=== PATIENT | female | born 1980 | race Caucasian/White ===

== ENCOUNTER 2019-10-20 09:06 | Outpatient (CLI) | payer OTHER, SELFPAY ==
--- NOTE | ~2019-10-20 | XR_ITS ---
XR lumbar spine 2-3V 10/20/2019 09:50 Indication: Low back pain for 3 weeks Procedure: 3 views lumbar spine Comparison: No prior studies for comparison. Findings: Vertebral body heights are maintained. No significant disc narrowing. No fracture, subluxat ion or spondylolisthesis. Normal alignment. Pedicles intact. Sacral foramen are symmetric. There are cholecystectomy clips. Impression: 1: No significant abnormality of the lumbar spine. Reviewed, dictated and finalized at location A. Impression: 1: No significant abnormality of the lumbar spine.
== END 2019-10-20 09:07 | disposition home or self-care (01) ==
LOC: ANHIMG 09:10
PROVIDERS: PCP Family Medicine; Visit Provider Nurse Practitioner Family
DX: M54.5 Low back pain (principal)
CPT/HCPCS: 72100

== ENCOUNTER 2019-10-26 01:12 | Day surgery (SDC) | payer OTHER, SELFPAY ==
[2019-10-21 14:38] VITALS: BMI 36.8
[2019-10-26 11:50] VITALS: BP 110/72; PULSE 88; RESP 18; TEMP 36.4; O2SAT 99
[2019-10-26] MEDS: LACTATED RINGERS 1,000 ML 150 ML IV CONT (11:58)
--- NOTE | 2019-10-26 12:06 | WPDANESEPPF ---
Anes - Initial Pre Proc Eval Procedure: Operation Date: 10/26/19 13:00 Proposed Procedures p Esophagogastroduodenoscopy - Edgardo Cabral MD Date/Time: 10/26/19 12:06 Surgeon: Edgardo Cabral MD Pre Op Diagnosis: Reflux Patient Data Age: 39 Gender: F Height: 5 ft 8 in Weight: 111.9 kg Last Vital Signs Temp 36.4 C 10/26/19 11:50 Pulse 88 10/26/19 11:50 Resp 18 10/26/19 11:50 BP 110/72 10/26/19 11:50 Pulse Ox 99 10/26/19 11:50 Allergies Allergy/AdvReac Type Severity Reaction Status Date / Time latex Allergy Unknown RASH-GLOVES Verified 10/20/19 08:35 morphine AdvReac Unknown Nausea and Verified 10/20/19 08:35 Vomiting Home Medications Medication Instructions Recorded Confirmed Type alprazolam 0.5 mg tablet,extended 0.5 mg PO DAILY 07/13/19 10/26/19 History release 24 hr cetirizine 5 mg-pseudoephedrine ER 1 tablet PO Q12H #60 tablet 09/04/19 10/26/19 Rx 120 mg tablet,extended release,12hr cholecalciferol (vitamin D3) 1,250 50,000 unit PO WEEKLY #8 cap 10/02/19 10/26/19 Rx mcg (50,000 unit) capsule escitalopram oxalate 10 mg tablet 15 mg PO DAILY #45 tablet 10/02/19 10/26/19 Rx valacyclovir 500 mg PO DAILY 10/21/19 10/21/19 History nabumetone 750 mg PO BID 10/26/19 10/26/19 History tizanidine [Zanaflex] 4 mg PO TID PRN 10/26/19 10/26/19 History Patient hx anesthesia problems: none Family hx anesthesia problems: none PMFSH Past Medical History Medical History Anxiety Cough Hx of migraine headaches Social History Social History Smoking packs per day: 1 Smoking cigarettes per day: 20.0 Smoking status: Former smoker Tobacco type: cigarettes Smoking end date: 08/14/10 Alcohol intake: current Drinks per week: 2 Anes - Eval Final PreProcedure Day of Procedure 10/26/19 12:06 Patient weight: obese Heart: regular rate and rhythm Lungs: clear to auscultation Airway: Mallampati scale class II Neurological: alert and oriented Last oral intake: >/= 8 hours Emergent: no Anesthetic plan: proceed Anesthesia type and monitoring: general GIVS and standard monitoring Informed Consent: The patient's anesthetic plan and its attendant risks and benefits were discussed with the patient/family/POA. Questions were solicited and answers provided to the satisfaction of the patient/family/POA.
[2019-10-26] MEDS: BENZOCAINE (*SP) 60 ML SPRAY CAN (HURRICAINE) 1 SPRAY MUCOUS MEM (13:06)
--- NOTE | 2019-10-26 13:12 | WPDHPUPDATE1 ---
History and Physical Update Update Date/Time: 10/26/19 13:12 History and Physical has been reviewed, including an updated exam of the patient. There are NO changes in the patient's condition. Risks, benefits, and alternatives have been discussed and questions answered. Patient agrees to proceed with procedure.
[2019-10-26 13:16] VITALS: BP 92/60; PULSE 60; RESP 18; O2SAT 97
[2019-10-26 13:26] VITALS: BP 91/57; PULSE 61; RESP 20; O2SAT 98
[2019-10-26 13:34] VITALS: BP 91/57; PULSE 61; RESP 20; O2SAT 98
[2019-10-26 13:36] VITALS: BP 99/68; PULSE 76; RESP 22; O2SAT 100
== END 2019-10-26 14:10 | disposition home or self-care (01) ==
PROVIDERS: PCP Family Medicine; Visit Provider Internal Medicine Gastroenterology
PROC: 0DJ08ZZ Inspection of Upper Intestinal Tract, Via Natural or Artificial Opening Endoscopic (ICD-10-PCS; CPT 43235; principal; 2019-10-26 13:00)
DX: K21.0 Gastro-esophageal reflux disease with esophagitis (principal); K29.50 Unspecified chronic gastritis without bleeding; F41.9 Anxiety disorder, unspecified; Z87.891 Personal history of nicotine dependence; E66.9 Obesity, unspecified; Z68.37 Body mass index [BMI] 37.0-37.9, adult
CPT/HCPCS: 43239; 88305; J2704; J7120

== ENCOUNTER → 2021-10-10 02:12 | Outpatient (CLI) | payer OTHER, SELFPAY ==
[2021-10-10 14:30] LABS: SARS-CoV-2 RNA PCR Negative
== END ==
PROVIDERS: PCP Family Medicine; Visit Provider Obstetrics & Gynecology
DX: Z01.812 Encounter for preprocedural laboratory examination (principal); Z20.822 Contact with and (suspected) exposure to COVID-19
CPT/HCPCS: C9803; U0003; U0005

== ENCOUNTER 2021-10-10 08:10 | Outpatient (CLI) | payer OTHER, SELFPAY ==
[2021-10-10 08:58] LABS: Basophils Percent Auto 0.6 % (0.2-1.2); Eosinophils Absolute Auto 0.1 K/mm3 (0-0.3); Eosinophils Percent Auto 1.6 % (0-4.4); Hematocrit 39.7 % (37.0-47.0); Hemoglobin 13.3 g/dL (12.0-15.0); Immature Granulocyte Absolute 0.02 K/mm3 (0.00-0.031); Immature Granulocyte Percent A 0.3 % (0-0.5); Lymphocytes Absolute Auto 1.79 K/mm3 (0.9-3.2); Lymphocytes Percent Auto 28.7 % (18.3-44.2); Mean Corpuscular HGB Conc 33.5 g/dl (32-36); Mean Corpuscular Hemoglobin 30.8 pg (26-34); Mean Corpuscular Volume 91.9 fl (80-100); Mean Platelet Volume 9.6 fl (7.4-10.4); Monocytes Absolute Auto 0.4 K/mm3 (0.1-0.6); Monocytes Percent Auto 6.6 % (2.6-8.5); Neutrophils Absolute Auto 3.9 K/mm3 (1.3-6.7); Neutrophils Percent Auto 62.2 % (45.5-73.1); Platelet Count Result 391 k/mm3 (150-375); Red Blood Count 4.32 M/mm3 (4.2-5.4); Red Cell Distribution Width 12.9 % (11.5-14.5); White Blood Count 6.2 K/mm3 (4.5-10.0)
== END 2021-10-10 08:11 | disposition home or self-care (01) ==
PROVIDERS: PCP Family Medicine; Visit Provider Obstetrics & Gynecology
DX: Z01.812 Encounter for preprocedural laboratory examination (principal); N85.2 Hypertrophy of uterus
CPT/HCPCS: 36415; 85025; 86850; 86900; 86901

== ENCOUNTER 2021-10-13 01:47 | Day surgery (SDC) | payer OTHER, SELFPAY ==
[2021-10-06 12:12] VITALS: BMI 42.0
--- NOTE | 2021-10-06 12:28 | PC.NURSE ---
Report to the Outpatient Waiting Room, entrance under the green pavilion located off [facility], at time 6:00 on date 10/13/21. OR Time: 7:30. - You and your visitor will be asked a series of questions to screen for COVID 19 for your protection. - A mask is required within the hospital. One visitor will be allowed to accompany the patient into the hospital. Patients visitor will be instructed to remain with patient at all times or leave the building. We will allow the visitor to come back to the postoperative area when patient is ready. Preoperative COVID Testing Requirements: COVID TEST 10/10 AT 9:00 No COVID Test needed if: (proof is required; if not received patient will have Rapid Test prior to entry) - Patient has received COVID Vaccine at least 14 days prior to procedure date or - Patient has positive COVID test result within last 90 days of surgery date. COVID Test needed if above criteria is not met If not COVID vaccinated a COVID test must be conducted within 72 hours of surgery and patient is asked to isolate self from time of testing until procedure. You will go to the [facility] for your COVID testing. The [facility] site is located at the corner of [address] [facility]. You will only be called if COVID results are positive and your surgeon may reschedule your elective surgery date. Patients may have clear liquids (water, carbonated beverages, clear teas, apple juice) until 3 hours prior to surgery (4:30) with a maximum of 20 ounces. - No food from midnight until time of surgery Take the following medications with a SIP of water the morning of surgery: XANAX (IF NEEDED), LEXAPRO, VALACYCLOVIR Medications to discontinue per physician: N/A Date to take last dose: N/A Please no make-up, nail somali, hairspray, perfume, deodorant, or body powder the day of surgery. No jewelry (including any body piercings) or valuables the day of surgery, leave them at home. Please take a shower or bath the night before, or the morning of, surgery with an antibacterial soap. Wear comfortable, loose fitting clothing. - Jewelry must be removed prior to entering the operating room. Rings and piercings that are not removed may be cut off. - The hospital will not accept responsibility for valuables. - Please leave all valuables, including medications, at home the day of surgery. If you are going home after surgery, a licensed independent driver must drive you home. - NO public transportation without another adult. - We recommend that an adult stay with you for 24 hours following discharge. - We also recommend that you do not drive, make important decision, drink alcoholic beverages, or take any drugs that were not prescribed by your health care provider for at least 24 hours after your discharge time. Follow any additional instructions given to you from your surgeon. Telephone instructions given to SANDIE GRAY and asked if any additional questions and then verbalized understanding. Patient advised to call surgeon office or pre surgery nurse liaison [phone] if any additional questions.
--- NOTE | 2021-10-11 07:32 | PM.IMHP ---
H&P: HPI History of Present Illness Date/Time: 10/11/21 07:32 this is a 30 3 para 2 who is admitted for robotic total vaginal hysterectomy and bilateral salpingectomy secondary to uterine fibroids and uterine prolapse. She complains pain and discomfort dyspareunia and heavy periods. This has been ongoing problem and she desires permanent removal and repair. Risks and benefits reviewed including but not exclusive of , aspiration and a family bleeding, transfusion, perforation under bowel, bladder, ureters, or other internal organs with need for open laparotomy. She received the [employer] handout entitled hysterectomy as well as the [facility] handout. She had all questions answered and asked to proceed Chief Complaint: uterine fibroids and pelvic pain with prolapse Review of Systems Review of Systems: All systems reviewed & are unremarkable except as noted in HPI and below PMFSH Past Medical History Medical History Anxiety BMI 40.0-44.9, adult Cough Hx of migraine headaches Family History Family History Father Hypertension Family history of coronary artery disease Grandparent Cerebrovascular accident Social History Social History Smoking packs per day: 0.5 Smoking cigarettes per day: 10.0 Years smoked: 20 Smoking pack-years: 10.00 Smoking status: Former smoker Tobacco type: cigarettes Second hand tobacco smoke exposure: No Smoking end date: 08/12/11 Alcohol intake: current Drinks per week: 2 Alcohol use details: 3/MONTH Substance use: current Substance use type: marijuana Spiritual care concerns: No Meds Home Medications and Allergies Home Medications Medication Instructions Recorded Confirmed Type tizanidine 2 mg tablet 2 mg PO QHS PRN #20 tablet 11/28/20 10/06/21 Rx alprazolam 0.5 mg tablet 0.5 mg PO BID PRN 12/08/20 10/06/21 History valacyclovir 500 mg tablet 500 mg PO DAILY #30 tablet 04/03/21 10/06/21 Rx escitalopram oxalate 20 mg tablet 20 mg PO DAILY #30 tablet 05/23/21 10/06/21 Rx omeprazole 40 mg capsule,delayed 40 mg PO DAILY #30 cap 07/25/21 10/06/21 Rx release levocetirizine [Xyzal] 5 mg PO DAILY 10/06/21 10/06/21 History Allergies Allergy/AdvReac Type Severity Reaction Status Date / Time latex Allergy Unknown RASH-GLOVES Verified 10/06/21 12:09 morphine AdvReac Unknown Nausea and Verified 10/06/21 12:09 Vomiting Exam Const: General: no acute distress Eyes: General: appearance normal, both eyes and all related structures Neck: Neck: supple and no JVD Thyroid: thyroid normal Resp: Effort & Inspection: normal respiratory effort Auscultation: clear to auscultation bilaterally Cardio: Rate: regular rate Rhythm: regular rhythm GI: Inspection: non-distended GI Palp: Yes Soft to palpation, No Tenderness to palpation present (GI) and No Guarding due to palpation present (GI) Auscultation: normal bowel sounds : External Female Exam: normal external appearance Speculum Exam - Vagina: normal appearance of the vagina Speculum Exam - Cervix: normal appearance of the cervix and Cervical os closed ( second-degree prolapse is present) Bimanual exam- vagina & uterus: enlarged Bimanual Exam- Adnexa, other: No adnexal tenderness Skin: General skin exam: no rashes or lesions noted Extrem: General: normal to inspection and no edema Psych: Mental Status: mental status grossly normal Affect: normal affect Assessment and Plan Additional Plan impression: Fibroid uterus uterine prolapse pelvic pain Plan: Robotic total vaginal hysterectomy and bilateral salpingectomy
[2021-10-13] VITALS (13 sets, daily range): BP systolic 71–128; BP diastolic 44–73; PULSE 73–96; RESP 10–18; TEMP 35.9–36.7; O2SAT 93–99
--- NOTE | 2021-10-13 06:45 | P.PNAN_ITS ---
Anes - Initial Pre Proc Eval Procedure: Operation Date: 10/13/21 07:30 Proposed Procedures p Robotic Assisted Total Vaginal Hysterectomy with Bilateral Salpingectomy - Ernesto Rivera MD Date/Time: 10/13/21 06:45 Surgeon: Ernesto Rivera MD Pre Op Diagnosis: enlg uterus, pelvic pain, fibroids, uterine prolap Patient Data Age: 41 Gender: F Height: 1.75 m Weight: 129.27 kg Allergies Allergy/AdvReac Type Severity Reaction Status Date / Time latex Allergy Unknown RASH-GLOVES Verified 10/06/21 12:09 morphine AdvReac Unknown Nausea and Verified 10/06/21 12:09 Vomiting Home Medications Medication Instructions Recorded Confirmed Type tizanidine 2 mg tablet 2 mg PO QHS PRN #20 tablet 11/28/20 10/06/21 Rx alprazolam 0.5 mg tablet 0.5 mg PO BID PRN 12/08/20 10/06/21 History valacyclovir 500 mg tablet 500 mg PO DAILY #30 tablet 04/03/21 10/06/21 Rx escitalopram oxalate 20 mg tablet 20 mg PO DAILY #30 tablet 05/23/21 10/06/21 Rx omeprazole 40 mg capsule,delayed 40 mg PO DAILY #30 cap 07/25/21 10/06/21 Rx release levocetirizine [Xyzal] 5 mg PO DAILY 10/06/21 10/06/21 History hydrocodone-acetaminophen 1 tablet PO Q4H PRN #30 tablet 10/13/21 Rx Patient hx anesthesia problems: none Family hx anesthesia problems: none Results Review: All pre-operative results and documents have been reviewed as part of the pre-operative evaluation. [facility] Past Medical History Medical History Anxiety BMI 40.0-44.9, adult Cough GERD (gastroesophageal reflux disease) Hx of migraine headaches Family History Family History Father Hypertension Family history of coronary artery disease Grandparent Cerebrovascular accident Social History Social History Smoking packs per day: 0.5 Smoking cigarettes per day: 10.0 Years smoked: 20 Smoking pack-years: 10.00 Smoking status: Former smoker Tobacco type: cigarettes Second hand tobacco smoke exposure: No Smoking end date: 08/12/11 Alcohol intake: current Drinks per week: 2 Alcohol use details: 3/MONTH Substance use: current Substance use type: marijuana Living arrangements: with family Spiritual care concerns: No Anes - Eval Final PreProcedure Day of Procedure 10/13/21 06:45 Patient weight: morbidly obese Heart: regular rate and rhythm Lungs: clear to auscultation Airway: Mallampati scale class II Neurological: alert and oriented Last oral intake: >/= 8 hours ASA classification: III Emergent: no Anesthetic plan: proceed Anesthesia type and monitoring: general ETT and standard monitoring Results Review: All pre-operative results and documents have been reviewed as part of the pre-operative evaluation. Informed Consent: The patient's anesthetic plan and its attendant risks and benefits were discussed with the patient/family/POA. Questions were solicited and answers provided to the satisfaction of the patient/family/POA.
--- NOTE | 2021-10-13 06:45 | WPDHPUPDATE1 ---
History and Physical Update Update Date/Time: 10/13/21 06:45 History and Physical has been reviewed, including an updated exam of the patient. There are NO changes in the patient's condition. Risks, benefits, and alternatives have been discussed and questions answered. Patient agrees to proceed with procedure.
[2021-10-13] MEDS: ACETAMINOPHEN 500 MG TABLET 1000 MG PO (07:10)
[2021-10-13] MEDS: LACTATED RINGERS 1,000 ML 30 ML IV CONT ×2 (07:19→09:05)
[2021-10-13] MEDS: KETOROLAC 15 MG/ML VIAL (*BKC) IV PUSH (07:20)
[2021-10-13] MEDS: SCOPOLAMINE 1.5 MG PATCH TRANSDERM (07:20)
[2021-10-13] MEDS: ceFAZolin 3 GM/D5W 100 ML 100 ML IVPB (07:25)
--- NOTE | 2021-10-13 08:37 | P.OP_ITS ---
Procedure Note - Detailed Date of Procedure 10/13/21 Pre-op Diagnosis enlg uterus, pelvic pain, fibroids, uterine prolap Post-op Diagnosis Same Procedure Performed Robotic total vaginal hysterectomy and bilateral salpingectomy Surgeon Ernesto Rivera MD Anesthesia General Indications This is a 41-year-old female with symptomatic uterine fibroids and heavy bleeding and pain Findings Enlarged uterus. Normal-appearing ovaries and tubes Description of Procedure The patient was prepped draped in the normal sterile fashion placed in the dorsal lithotomy position. Under excellent general trach anesthesia weighted speculum placed in posterior fornix vagina. Anterior lip of the cervix grasped with a single-tooth tenaculum an the uterus sounded to 11cm. Serial dilatation with fragmented dilators performed followed passes the 10. BRIAN and the 3. Cold cup. Next the 16 Uzbek catheter was placed in bladder and drained clear urine. The weighted speculum was removed and the gloves were changed. A supraumbilical incision made in the Veress needle passed in the abdomen. Abdomen filled with CO2 gas [id number]. The 8mm trocar advanced in the abdomen downside visualized no injury seen. Patient placed in Trendelenburg and right left lateral quadrant incision made. The 8mm trocars advanced under direct visualization assuring no injury. Right upper quadrant incision made the 8mm trocar advanced in the abdomen under direct visualization. The robot was docked and no injury was seen. Attention was turned to the console. The left round ligament was grasped, burned, cut. Anteriorly a bladder flap was formed by sharply dissecting the bladder layer by layer and reached flexing it caudally to the opposite round ligament which was clamped, burned, cut. Next the left fallopian tube was skeletonized and sharply dissected away from the ovarian complex and this was repeated on the contralateral side with right fallopian tube. The left utero- ovarian ligament was skeletonized to conserve the left ovary clamped burned and cut and brought the level of previously cut round ligament. In like fashion the right ovary was conserved by clamping burning cutting the right utero-ovarian ligament until the round ligament was met. The cardinal broad ligaments on the left were serially skeletonized brought down the lateral edge hugging the cervix and uterus clamping burning cutting until the large tortuous blood vessels were seen. On the left was a fairly large sinus. These were clamped burned cut and the hemostasis noted. In like fashion the cardinal broad ligaments on the right were serially skeletonized clamping burning cutting hugging the uterus and cervix on the opposite side until the uterine vessels could be seen on the right these are were also large and tortuous. These were serially clamped, burned, cut. Blanching the uterus was seen it colpotomy incision was made uterus cervix and tubes removed through the vagina. The vagina was then closed with continuous running 0V lock from lateral edge to lateral edge back to the midline. Irrigation undertaken to clear and hemostasis was assured. Blood loss estimated 25cc. The robot was undocked. The gas removed from the abdomen. The incisions closed with 4 Monocryl and glue. The patient awakened went to recovery in satisfactory condition. All sponge, needle, instrument counts were correct. There were no immediate complications noted Estimated Blood Loss 25 Drains No Packing No Pathology Yes Complications No immediate complications Condition Stable Disposition PACU
[2021-10-13] MEDS: fentaNYL CITRATE INJ (*CRX) 100 MCG/2 ML VIAL 25 MCG IV PUSH ×6 (08:57→09:54)
[2021-10-13] MEDS: MEPERIDINE HCL INJ (*CRX) 50 MG/ML AMPUL 25 MG IV PUSH (09:25)
[2021-10-13] MEDS: KETOROLAC 30 MG/ML VIAL (*BKC) IV PUSH (10:40)
[2021-10-13] MEDS: ONDANSETRON INJ 4 MG/2 ML VIAL IV PUSH (10:40)
[2021-10-13] MEDS: HYDROcodone/acetaminophen (*CRX) 10-325 MG TABLET 1 TAB PO ×2 (16:11→20:59)
[2021-10-13] MEDS: DOCUSATE SODIUM 100 MG CAPSULE PO (16:11)
[2021-10-13] MEDS: IBUPROFEN 600 MG TABLET PO (20:59)
[2021-10-14] MEDS: HYDROcodone/acetaminophen (*CRX) 10-325 MG TABLET 1 TAB PO ×4 (00:41→12:21)
[2021-10-14] MEDS: IBUPROFEN 600 MG TABLET PO ×2 (04:07→12:21)
[2021-10-14 04:43] VITALS: BP 106/57; PULSE 63; RESP 18; TEMP 35.9; O2SAT 97
[2021-10-14 05:30] LABS: Basophils Absolute Auto 0.1 K/mm3 (0.0-0.1); Basophils Percent Auto 0.5 % (0.2-1.2); Eosinophils Percent Auto 0.3 % (0-4.4); Hematocrit 34.9 % (37.0-47.0); Hemoglobin 11.6 g/dL (12.0-15.0); Immature Granulocyte Absolute 0.03 K/mm3 (0.00-0.031); Immature Granulocyte Percent A 0.3 % (0-0.5); Lymphocytes Absolute Auto 1.75 K/mm3 (0.9-3.2); Lymphocytes Percent Auto 15.9 % (18.3-44.2); Mean Corpuscular HGB Conc 33.2 g/dl (32-36); Mean Corpuscular Hemoglobin 30.3 pg (26-34); Mean Corpuscular Volume 91.1 fl (80-100); Mean Platelet Volume 9.9 fl (7.4-10.4); Monocytes Absolute Auto 0.5 K/mm3 (0.1-0.6); Monocytes Percent Auto 4.3 % (2.6-8.5); Neutrophils Absolute Auto 8.7 K/mm3 (1.3-6.7); Neutrophils Percent Auto 78.7 % (45.5-73.1); Platelet Count Result 374 k/mm3 (150-375); Red Blood Count 3.83 M/mm3 (4.2-5.4); Red Cell Distribution Width 12.9 % (11.5-14.5)
[2021-10-14 07:40] VITALS: BP 93/51; PULSE 84; RESP 18; TEMP 36.8; O2SAT 95
[2021-10-14] MEDS: SIMETHICONE 80 MG TAB.CHEW PO (07:46)
[2021-10-14] MEDS: ENOXAPARIN 40 MG/0.4 ML SYRINGE SUB-Q (07:46)
[2021-10-14] MEDS: DOCUSATE SODIUM 100 MG CAPSULE PO (07:46)
--- NOTE | 2021-10-14 08:19 | WPDANESPN ---
Anes - Prog Note Post-Op Date/Time: 10/14/21 08:19 Cardiovascular status: normal Respiratory status: normal Airway patency: baseline Mental status: baseline Post-Op hydration status: normal Vital Signs: Last Vital Signs Temp 98.3 F 10/14/21 07:40 Pulse 84 10/14/21 07:40 Resp 18 10/14/21 07:40 BP 93/51 L 10/14/21 07:40 Pulse Ox 95 10/14/21 07:40 Pain Score (VAS): 3 I/O: Intake & Output 10/13/21 10/14/21 10/14/21 23:59 07:59 15:59 Intake Total 200 550 Output Total 1200 400 Balance -1000 150 Laboratory Tests 10/14/21 04:10 10/14/21 04:10 WBC 11.0 H RBC 3.83 L Hgb 11.6 L Hct 34.9 L MCV 91.1 MCH 30.3 MCHC 33.2 RDW 12.9 Plt Count 374 MPV 9.9 Immature Gran % (Auto) 0.3 Neut % (Auto) 78.7 H Lymph % (Auto) 15.9 L Mitchell % (Auto) 4.3 Eos % (Auto) 0.3 Baso % (Auto) 0.5 Lymph # (Auto) 1.75 Mitchell # (Auto) 0.5 Eos # (Auto) 0.0 Baso # (Auto) 0.1 Abs Immat Gran (auto) 0.03 Absolute Neuts (auto) 8.7 H Absolute Nucleated RBC 0.0 Nucleated RBC % 0.0 Post-procedural complaints: none Patient Feedback: Patient satisfied with anesthetic care.
--- NOTE | 2021-10-14 11:30 | PM.GYNPNOP ---
[place] - A/P Postoperative Procedures: Procedures Operation Date: 10/13/21 07:30 Actual Procedure Side Surgeon p Robotic Assisted Total Vaginal Hysterectomy with Bilateral Salpingectomy Bilateral Ernesto Rivera MD A: POD#1, doing well. P: Home to f/u 2 weeks. Time Spent With Patient Time with patient: less than 15 minutes [place]- PN:Subj Post-Op Subjective Date/time seen: 10/14/21 11:30 Interval history: Pain OK. Tolerating diet. Voiding. Would like to go home. Exam Narrative: AVSS I/O OK ABD soft, nontender. Incisions c/d/i. EXT nontender [place] - PN: Obj Data Vital Signs Vital Signs: Vital Signs - 24 hr 10/13/21 12:05 10/13/21 17:00 10/13/21 20:26 Temperature 36.6 C 36.3 C L 35.9 C L Pulse Rate 79 79 84 Respiratory Rate 16 16 18 Blood Pressure 102/58 L 106/62 121/65 Pulse Oximetry 96 96 98 10/13/21 23:30 10/14/21 04:43 10/14/21 07:40 Temperature 36.0 C L 35.9 C L 36.8 C Pulse Rate 80 63 84 Respiratory Rate 18 18 18 Blood Pressure 101/56 L 106/57 L 93/51 L Pulse Oximetry 98 97 95 Intake/Output Intake/Output: Intake & Output 10/11/21 10/12/21 10/13/21 10/14/21 23:59 23:59 23:59 23:59 Intake Total 1700 550 Output Total 1240 400 Balance 460 150 Meds/Results Medications: Active Medications Generic Name Dose Route Start Last Admin Trade Name Freq PRN Reason Stop Dose Admin Hydrocodone Bitart/Acetaminophen 1 tab 10/13/21 10:30 Hydrocodone/Acetaminophen (*Crx) 5-325 Mg Tablet PO Q3H PRN Pain Rated 5 or Less Hydrocodone Bitart/Acetaminophen 1 tab 10/13/21 10:30 10/14/21 07:46 Hydrocodone/Acetaminophen (*Crx) 10-325 Mg Tablet PO 1 tab Q3H PRN Administration Pain Rated 6 or Greater Docusate Sodium 100 mg 10/13/21 10:30 10/14/21 07:46 Docusate Sodium 100 Mg Capsule PO 100 mg BID PRIYA Administration Enoxaparin Sodium 40 mg 10/13/21 10:30 10/14/21 07:46 Enoxaparin 40 Mg/0.4 Ml Syringe SUB-Q 40 mg DAILY PRIYA Administration Ibuprofen 600 mg 10/13/21 10:30 10/14/21 04:07 Ibuprofen 600 Mg Tablet PO 600 mg Q6H PRN Administration Cramping Ketorolac Tromethamine 30 mg 10/13/21 10:30 10/13/21 10:40 Ketorolac 30 Mg/Ml Vial (*Bkc) IV PUSH 10/18/21 10:29 30 mg Q6H PRN Administration Pain Rated 4-6 Naloxone HCl 0.1 mg 10/13/21 10:30 Naloxone Hcl 0.4 Mg/Ml Vial IV PUSH Q2M PRN Respiratory rate less than 10 Ondansetron HCl 4 mg 10/13/21 10:30 10/13/21 10:40 Ondansetron Inj 4 Mg/2 Ml Vial IV PUSH 4 mg Q6H PRN Administration Nausea And Vomiting Simethicone 80 mg 10/13/21 10:30 10/14/21 07:46 Simethicone 80 Mg Tab.Chew PO 80 mg Q2H PRN Administration Gas Labs CBC & Chem 7: 10/14/21 04:10 Labs: Laboratory Results - last 24 hr 10/14/21 04:10 WBC 11.0 H RBC 3.83 L Hgb 11.6 L Hct 34.9 L MCV 91.1 MCH 30.3 MCHC 33.2 RDW 12.9 Plt Count 374 MPV 9.9 Immature Gran % (Auto) 0.3 Neut % (Auto) 78.7 H Lymph % (Auto) 15.9 L [place] % (Auto) 4.3 Eos % (Auto) 0.3 Baso % (Auto) 0.5 Lymph # (Auto) 1.75 [place] # (Auto) 0.5 Eos # (Auto) 0.0 Baso # (Auto) 0.1 Abs Immat Gran (auto) 0.03 Absolute Neuts (auto) 8.7 H Absolute Nucleated RBC 0.0 Nucleated RBC % 0.0
--- NOTE | 2021-10-16 07:08 | PM.DS ---
DS: Admitting Diagnosis Discharge Date 10/14/21 Admitting Diagnosis Pelvic pain/enlarged uterus/bleeding refractory to medical therapy DS: Summary Hospital Course Hospital Course: Patient was admitted for robotic total vaginal hysterectomy and bilateral salpingectomy hospital course was unremarkable. She remained afebrile. She was up, voiding without difficulty, ambulating generally without complaints. Time Spent with Patient Time attestation: Total time spent providing and/or coordinating discharge services: Exam Const: General: no acute distress Eyes: General: appearance normal, both eyes and all related structures Neck: Neck: supple and no JVD Thyroid: thyroid normal Resp: Effort & Inspection: normal respiratory effort Auscultation: clear to auscultation bilaterally Cardio: Rate: regular rate Rhythm: regular rhythm GI: Inspection: non-distended GI Palp: Yes Soft to palpation, No Tenderness to palpation present (GI) and No Guarding due to palpation present (GI) Auscultation: normal bowel sounds : General: Yes bladder normal to palpation External Female Exam: normal external appearance Speculum Exam - Vagina: normal vaginal discharge and No vaginal bleeding Speculum Exam - Cervix: nontender Bimanual exam- vagina & uterus: bladder normal to palpation and No Cervical tenderness present OB/external & speculum: No vaginal bleeding Skin: General skin exam: no rashes or lesions noted Extrem: General: normal to inspection and no edema Psych: Mental Status: mental status grossly normal Affect: normal affect DS: Data Data Completed and Pending Pending studies at discharge: Pending at discharge 10/13/21 07:59 Surgical [PTH] Routine Discharge Plan Discharge Patient Disposition: Home, Self-Care Discharge Instructions: Remove the Scopolamine patch that was placed behind your left ear in 72 hours or less. Wash your hands after touching. Patient Instructions: Laparoscopic Hysterectomy (DC) Stand Alone Forms: General Discharge Instructions Follow-up/Referrals: Ernesto Rivera MD [Physician] - Call for Appointment Discharge Medications: New hydrocodone-acetaminophen 5-325 mg tablet 1 tablet PO Q4H PRN (Reason: pain) Qty: 30 RF: 0 Continued alprazolam 0.5 mg tablet 0.5 mg PO BID PRN (Reason: Anxiety) RF: 0 tizanidine 2 mg tablet 2 mg PO QHS PRN (Reason: muscle spasticity) Qty: 20 RF: 0 levocetirizine [Xyzal] 5 mg Tablet 5 mg PO DAILY RF: 0 valacyclovir 500 mg tablet 500 mg PO DAILY Qty: 30 RF: 3 escitalopram oxalate [Lexapro] 20 mg tablet 20 mg PO DAILY Qty: 30 RF: 3 omeprazole 40 mg capsule,delayed release(DR/EC) 40 mg PO DAILY Qty: 30 RF: 0
== END 2021-10-14 12:45 | disposition home or self-care (01) ==
LOC: ANHSURGERY 06:46 → ANHOB2 10:33
PROVIDERS: PCP Family Medicine; Visit Provider Obstetrics & Gynecology
PROC: (CPT 58552; principal; 2021-10-13 07:30)
DX: N85.2 Hypertrophy of uterus (principal); R10.12 Left upper quadrant pain; N73.6 Female pelvic peritoneal adhesions (postinfective); F41.9 Anxiety disorder, unspecified; N94.10 Unspecified dyspareunia; N92.0 Excessive and frequent menstruation with regular cycle; Z87.891 Personal history of nicotine dependence; F12.90 Cannabis use, unspecified, uncomplicated
CPT/HCPCS: 58552; S2900; 36415; 85025; 86850; 86900; 86901; 88307; 99199; A9270; C9803; J0690; J1100; J1170; J1650; J1885; J2175; J2250; J2405; J2704; J2710; J3010; J7030; J7120; U0003; U0005

== ENCOUNTER 2021-10-19 08:02 | Outpatient (CLI) | payer OTHER, SELFPAY ==
--- NOTE | ~2021-10-19 | MM_ITS ---
EXAMINATION: MM screening ina BI w hal HISTORY: Screening TECHNIQUE: Craniocaudal and mediolateral oblique 3-D tomosynthesis images were obtained and synthetic 2-D images were generated. CAD analysis was submitted and interpreted. COMPARISON: No prior mammogram is available for comparison at this institution. BREAST PARENCHYMAL COMPOSITION: There are scattered areas of fibroglandular density. FINDINGS: There is no evidence of suspicious mass, calcification, or architectural distortion to sugg est malignancy in either breast. There has been no suspicious interval change. IMPRESSION: 1. No mammographic evidence of malignancy. 2. Recommend routine screening mammography in one year. BI-RADS Category 1: Negative Reviewed, dictated and finalized at location A. RING MACHINE TENDER
== END 2021-10-19 08:03 | disposition home or self-care (01) ==
LOC: ANHIMG 08:05
PROVIDERS: PCP Family Medicine; Visit Provider Obstetrics & Gynecology
DX: Z12.31 Encounter for screening mammogram for malignant neoplasm of breast (principal)
CPT/HCPCS: 77063; 77067

== ENCOUNTER 2022-04-20 10:08 | Outpatient (CLI) | payer OTHER, SELFPAY ==
--- NOTE | 2022-05-11 17:35 | WPDSLEEPSTUD ---
Sleep Study Date of Study: 04/20/22 Ordering Provider: Jai Miguel MD Interpreting Physician: Francia Mancini DO Sleep Study Type: Polysomnogram Height: 1.75 m Weight: 123.831 kg Body Mass Index: 40.3 Neck Circumference (inches): 15.5 [place]: 12 Reason for Sleep Study Difficulty falling asleep and staying asleep Sleep History The patient is a 42-year-old female with anxiety, depression, cold sores, seasonal allergies and history of tobacco use that had a sleep study ordered by her primary care for evaluation of sleep apnea. The patient occasionally awakens from sleep short of breath. She frequently awakens at night with heartburn, belching or cough. She constantly snores and constantly loudly enough that others complain. She constantly has trouble sleeping when she has a cold. She frequently wakes up gasping for air throughout the night. She frequently has breathing problems at night observed by herself or others. She constantly sweats excessively at night. She constantly has heart palpitations or irregular heartbeats during the night. She denies falling asleep during the day and while driving. She frequently experiences loss of muscle tone when extremely emotional. She constantly has trouble at school or work due to sleepiness. He occasionally feels unable to move while waking up or falling asleep. She frequently experiences vivid dreamlike scenes upon awakening or falling asleep. She occasionally feels afraid of going to sleep. She constantly has nightmares. She constantly remembers her dreams. She constantly has thoughts racing through her mind. She frequently feels sad or depressed. She constantly has anxiety. She constantly has muscular tension. She constantly notices parts of her body jerk. She constantly kicks during the night. She frequently has crawling and aching feelings in her legs and occasionally has leg pain during the night. She frequently grinds her teeth during sleep and frequently awakens with morning jaw pain. She is constantly bothered by pain during the day and occasionally awakened by pain during the night. He constantly wakes up feeling stiff in the morning. She frequently wakes up with sore achy muscles. She constantly wakes up with pain in the neck, spine and other joints. She goes to bed at 9:30 a.m. to 10:00 p.m. on weekdays and between 11:00 p.m. to midnight on the weekends. He takes her 45 minutes to fall asleep. She wakes up 2-3 times throughout the night to urinate. She is able to fall back asleep within 10-90 minutes. She wakes up at 7:00 a.m. on weekdays and between 9-10 a.m. on the weekends. She typically gets 8 hours of sleep per night. She will stay in bed for 15-30 minutes after waking up in the morning. She currently lives with her . She does not consume any caffeinated beverages within 2 hours of bedtime. She does not engage in physical exercise before bedtime. She will read and watch television before falling asleep. He denies taking naps in the afternoon or the evening. She drinks 4-5 caffeinated sodas per day. She will drink alcohol on the weekends. She quit smoking several years ago. She will use CBD gummies to help with anxiety. [facility] Past Medical History Medical History Anxiety Apnea BMI 40.0-44.9, adult Cough GERD (gastroesophageal reflux disease) Hx of migraine headaches Surgical History Surgical History History of hysterectomy Family History Family History Father Hypertension Family history of coronary artery disease Grandparent Cerebrovascular accident Social History Social History Smoking packs per day: 0.5 Smoking cigarettes per day: 10.0 Years smoked: 20 Smoking pack-years: 10.[address]
[2022-05-11 17:45] VITALS: BMI 40.3
== END 2022-04-21 06:46 | disposition home or self-care (01) ==
PROVIDERS: PCP Family Medicine; Visit Provider Family Medicine
DX: G47.30 Sleep apnea, unspecified (principal); G47.10 Hypersomnia, unspecified; R40.0 Somnolence
CPT/HCPCS: 95810

== ENCOUNTER 2022-06-19 17:03 | Outpatient (CLI) | payer OTHER, SELFPAY ==
[2022-06-19 17:25] LABS: Hematocrit 41.1 % (37.0-47.0); Hemoglobin 13.4 g/dL (12.0-15.0); Mean Corpuscular HGB Conc 32.6 g/dl (32-36); Mean Corpuscular Hemoglobin 31.5 pg (26-34); Mean Corpuscular Volume 96.5 fl (80-100); Mean Platelet Volume 9.5 fl (7.4-10.4); Platelet Count Result 448 k/mm3 (150-375); Red Blood Count 4.26 M/mm3 (4.2-5.4); Red Cell Distribution Width 12.9 % (11.5-14.5); White Blood Count 7.2 K/mm3 (4.5-10.0)
[2022-06-19 17:37] LABS: Anion Gap 11 mmol/L (8-16); Blood Urea Nitrogen 12 mg/dL (7-17); Calcium 8.5 mg/dL (8.4-10.2); Carbon Dioxide 27 mmol/L (22-30); Chloride 103 mmol/L (98-107); Estimated Glomerular Filt Rate > 60; Glucose 99 mg/dL (65-110); Potassium 4.7 mmol/L (3.4-5.0); Sodium 141 mmol/L (137-145)
[2022-06-19 19:30] LABS: Iron 44 ug/dL (37-170)
[2022-06-19 19:39] LABS: Percent Iron Saturation 11 % (20-50)
== END 2022-06-19 17:04 | disposition home or self-care (01) ==
LOC: ANHLAB 17:05
PROVIDERS: PCP Family Medicine; Visit Provider Family Medicine
DX: D64.9 Anemia, unspecified (principal)
CPT/HCPCS: 36415; 80048; 82728; 83540; 83550; 85027

== ENCOUNTER 2022-09-21 15:34 | Outpatient (CLI) | payer OTHER, SELFPAY ==
[2022-09-21 15:55] LABS: Hematocrit 39.3 % (37.0-47.0); Hemoglobin 13.2 g/dL (12.0-15.0); Mean Corpuscular HGB Conc 33.6 g/dl (32-36); Mean Corpuscular Hemoglobin 30.7 pg (26-34); Mean Corpuscular Volume 91.4 fl (80-100); Mean Platelet Volume 9.4 fl (7.4-10.4); Platelet Count Result 383 k/mm3 (150-375); White Blood Count 7.4 K/mm3 (4.5-10.0)
[2022-09-21 16:14] LABS: Iron 42 ug/dL (37-170)
[2022-09-21 16:24] LABS: Percent Iron Saturation 11 % (20-50)
== END 2022-09-21 15:35 | disposition home or self-care (01) ==
LOC: ANHLAB 15:35
PROVIDERS: PCP Family Medicine; Visit Provider Family Medicine
DX: D50.8 Other iron deficiency anemias (principal)
CPT/HCPCS: 36415; 82728; 83540; 83550; 85027

== ENCOUNTER 2023-08-20 10:03 | Outpatient (CLI) | payer BC, SELFPAY ==
--- NOTE | ~2023-08-20 | XR_ITS ---
XR chest 2V DATE: 08/20/2023 10:21 INDICATION: Subacute cough. Preoperative evaluation. TECHNIQUE: PA and lateral views COMPARISON: None FINDINGS: Normal heart size. No hilar or mediastinal enlargement. No pulmonary infiltrate or consol idation, pulmonary vascular congestion or pleural effusion or pneumothorax. Surgical clips upper abdomen on lateral view, likely due to cholecystectomy. Included skeletal structures are unremarkable. IMPRESSION: No active cardiopulmonary disease Probable cholecystectomy Reviewed, dictated and finalized at location L. E OPERATOR
[2023-08-20 10:36] LABS: Basophils Absolute Auto 0.1 K/mm3 (0.0-0.1); Basophils Percent Auto 0.7 % (0.2-1.2); Eosinophils Absolute Auto 0.1 K/mm3 (0-0.3); Eosinophils Percent Auto 0.9 % (0-4.4); Hematocrit 41.7 % (37.0-47.0); Hemoglobin 13.8 g/dL (12.0-15.0); Immature Granulocyte Absolute 0.01 K/mm3 (0.00-0.031); Immature Granulocyte Percent A 0.1 % (0-0.5); Lymphocytes Percent Auto 25.8 % (18.3-44.2); Mean Corpuscular HGB Conc 33.1 g/dl (32-36); Mean Corpuscular Hemoglobin 31.7 pg (26-34); Mean Corpuscular Volume 95.9 fl (80-100); Mean Platelet Volume 10.2 fl (7.4-10.4); Monocytes Absolute Auto 0.4 K/mm3 (0.1-0.6); Neutrophils Absolute Auto 4.7 K/mm3 (1.3-6.7); Neutrophils Percent Auto 67.5 % (45.5-73.1); Platelet Count Result 393 k/mm3 (150-375); Red Blood Count 4.35 M/mm3 (4.2-5.4); Red Cell Distribution Width 12.6 % (11.5-14.5)
[2023-08-20 11:10] LABS: Alanine Aminotransferase 28 U/L (6-35); Albumin Level 4.1 g/dL (3.5-5.1); Alkaline Phosphatase 61 U/L (38-126); Anion Gap 10 mmol/L (8-16); Aspartate Amino Transferase 36 U/L (14-36); Bilirubin,Total 0.5 mg/dL (0.2-1.3); Blood Urea Nitrogen 14 mg/dL (7-17); Carbon Dioxide 25 mmol/L (22-30); Chloride 106 mmol/L (98-107); Estimated Glomerular Filt Rate > 60; Glucose 100 mg/dL (65-110); Potassium 4.2 mmol/L (3.4-5.0); Sodium 141 mmol/L (137-145)
[2023-08-20 12:02] LABS: Iron 72 ug/dL (37-170)
[2023-08-20 12:12] LABS: Percent Iron Saturation 20 % (20-50)
== END 2023-08-20 10:04 | disposition home or self-care (01) ==
PROVIDERS: PCP Family Medicine; Visit Provider Family Medicine
DX: R05.2 Subacute cough (principal); D64.9 Anemia, unspecified; F41.8 Other specified anxiety disorders; R53.83 Other fatigue
CPT/HCPCS: 36415; 71046; 80053; 82607; 82728; 83540; 83550; 84443; 85025

== ENCOUNTER 2024-10-13 14:27 | Outpatient (CLI) | payer BC, SELFPAY | END 2024-10-13 14:28 | disposition home or self-care (01) | LOC: MICIMG 14:28 | PROVIDERS: PCP Family Medicine; Visit Provider Family Medicine | DX: J20.8 Acute bronchitis due to other specified organisms (principal) | CPT/HCPCS: 71046 ==

== ENCOUNTER 2025-03-16 11:11 | Outpatient (CLI) | payer BC, SELFPAY ==
--- NOTE | ~2025-03-16 | US_ITS ---
EXAMINATION: US breast BI limited INDICATION: 45-year old female; BI-RADS 3, evaluate probably benign bilateral breast masses. COMPARISON: 09/03/2024 TECHNIQUE: Targeted sonographic evaluation of the probably benign masses in both breast was completed. FINDINGS: A 1.04 x 0.28 x 0.92 cm cluster of microcysts at 11:00 location 6 cm from the nipple in the RIGHT bharathi ast reidentified is unchanged. A 0.4 cm circumscribed round mass at 12:00 location 5 cm from the nipple in the RIGHT breast reidenti fied has not significantly changed. A 0.4 cm circumscribed cyst at 1:00 location 8 cm from the nipple in the LEFT breast reidentified is unchanged. IMPRESSION: Probably benign bilateral breast masses have not significantly changed. RECOMMENDATION: Continue imaging surveillance with bilateral diagnostic mammography and bilateral breast ultrasound i n 6 months. BI-RADS 3, PROBABLY BENIGN Reviewed, dictated and finalized at location B. IMPRESSION: Probably benign bilateral breast masses have not significantly changed. RECOMMENDATION: Continue imaging surveillance with bilateral diagnostic mammography and bilater al breast ultrasound in 6 months. BI-RADS 3, PROBABLY BENIGN
== END 2025-03-16 11:12 | disposition home or self-care (01) ==
LOC: MICIMG 11:12
PROVIDERS: PCP Family Medicine; Visit Provider Obstetrics & Gynecology
DX: R92.8 Other abnormal and inconclusive findings on diagnostic imaging of breast (principal)
CPT/HCPCS: 76642

== ENCOUNTER 2025-05-22 09:25 | Outpatient (CLI) | payer BC, SELFPAY ==
--- NOTE | ~2025-05-22 | XR_ITS ---
XR lumbar spine 6V w bending Indication: M54.16 - Radiculopathy, lumbar region Comparison: None Findings: Vertebral height is intact, no fracture, no subluxation flexion and extension. Minimal loss of disc at L5-S1. Soft tissues unremarkable Impression: No acute abnormality. Reviewed, dictated and finalized at location P. Impression: No acute abnormality.
--- OUTSIDE RECORDS SUMMARY | 2025-05-22 09:29 | XMS_ITS | Clinical Summary ---
Author Organization [facility] Address [address] [place] [address] Care Team Providers Care Network Security Architect Name Role Phone Jai Miguel MD Primary Care Provider [phone] Source Comments [facility],non-owned Affiliates and Associated Physician Practices is amultiple site organization consisting of ambulatory clinics and hospital sitesin [place], [place], [place] and [place]. This disclosure is being madepursuant to the Care Everywhere program and may not contain all information available regarding this patient. Last updated 18.[facility] [employer] Allergies Active Allergy Reactions Criticality Noted Date Comments Latex Rash Medium 09/17/2023 Morphine Unknown 02/19/2023 Doesn't help or work for her. Medications * Be aware that medications may not be up to date on this document. Alwaysverify current medications with the patient. ALPRAZolam (Xanax) 0.5 MG tablet Take 1 (one) tablet by mouth 2 times daily as needed anxiety 3 Active valACYclovir (Valtrex) 500 MG tablet Take 1 (one) tablet by mouth once daily 3 Active oxyCODONE (Roxicodone) 5 MG/5ML oral solutionIndicat ions:Morbid obesity (HCC) Take 5 mL by mouth every 6 hours as needed for Pain 120 mL 4 Active Additional Information Patient not taking.Reported on 04/02/2024 docusate sodium (Colace) 100 MG capsule Take 1 (one) capsule by mouth 2 times daily as needed for Constipation (relief of difficult bowel movements) 4 Active cyclobenzaprine (Flexeril) 10 MG tablet Take 1 (one) tablet by mouth 3 times daily 30 tablet 4 Active omeprazole (PriLOSEC) 20 MG capsule Take 1 (one) capsule by mouth once daily 30 capsule 5 4 Active vitamin D3 (Cholecalcifero l) 25 MCG (1000 UNITS) tablet Take 5 (five) tablets by mouth once daily Active Active Problems Problem Noted Date Diagnosed Date Morbid obesity 09/30/2023 Family History Medical History Relation Name Comments CAD (Coronary Artery Disease) Father Pulmonary Embolism Mother multiple in both lungs 2021 Relation Name Status Comments Father Mother Alive Social History Tobacco Use Types Packs/Day Years Used Date Smoking Tobacco: Former Cigarettes Q uit: 2010 Passive Smoke Exposure: Past Smokeless Tobacco: Never Tobacco Cessation:Counseling Given: Not Answered Alcohol Use Standard Drinks/Week Comments Yes 0 (1 standard drink = 0.6 oz pur e alcohol) SOCIALLY Comments No Sex and Gender Information Value Date Recorded Sex Assigned at Not on file Legal Sex Female 7:14 AM HOT TOP LINER Gender Identity Not on file Sexual Orientation Not on file Last Filed Vital Signs Vital Sign Reading Time Taken Comments Blood Pressure 116/72 04/02/2024 1:28 PM CDT Pulse 70 04/02/2024 1:28 PM CDT Temperature 36.3 C (97.4 F) 10/07/2023 10:22 AM HOT TOP LINER Respiratory Rate 18 10/01/2023 7:08 AM HOT TOP LINER Oxygen Saturation 100% 04/02/2024 1:28 PM CDT Inhaled Oxygen Concentration - - Weight 78.5 kg (173 lb) 09/29/2024 8:41 AM HOT TOP LINER Height 172.7 cm (5' 8) 04/02/2024 1:28 PM CDT Body Mass Index 26.3 04/02/2024 1:28 PM CDT Plan of Treatment Health Maintenance Due Date Last Done Comments COLOGUARD (AGES 45-75) - COLON CA SCREENING 1980 COLON MONITORING 1980 COLONOSCOPY - COLON CA SCREENING 1980 CT COLONOGRAPHY - COLON CA SCREENING 1980 Colorectal Cancer Screening 1980 FIT - COLON CA SCREENING 1980 FLEX SIG - COLON CA SCREENING 1980 LIPID TESTING 1980 MAMMOGRAM 1980 HIV SCREENING 02/08/1995 HEPATITIS C SCREENING 02/04/1998 DTAP/TDAP/TD VACCINES (1 - Tdap) 02/08/1999 HEPATITIS B VACCINE (1 of 3 - 19+ 3-dose series) 02/08/1999 HPV VACCINE (1 - 3-dose SCDM series) 02/08/2007 DEPRESSION SCREENING 08/12/2024 COVID-19 VACCINE (1 - season) 2025 INFLUENZA VACCINE (#1) 2025 SCREENING FOR DIABETES 10/01/2026 , 10/01/2023, 09/30/2023, Additional history exists ZOSTER VACCINE (1 of 2) 02/08/2030 HIB VACCINE Aged Out No longer eligi ble based on patient's age to complete this topic MENINGOCOCCAL (Group B) VACCINE SHARED DECISION-MAKING Aged Out No longer eligible based on patient's age to complete this topic MENINGOCOCCAL GROUPS A/C/Y/W VACCINE Aged Out No longer eligible based on patient's age to complete this topic PNEUMOCOCCAL VACCINE Aged Out No long er eligible based on patient's age to complete this topic Procedures Procedure Name Priority Date/Time Associated Diagnosis Comments GLUCOSE - POINT OF CARE Routine 10/01/2023 5:52 AM HOT TOP LINER from Last 3 Months or Most Recently Relevant to Health Maintenance Results * GLUCOSE - POINT OF CARE (10/01/2023 5:52 AM HOT TOP LINER) Glucose WB/POC 100 70 - 106 mg/dL 10/01/2023 5:59 AM HOT TOP LINER [facility] Specimen Type Cap Fingerstick 2023 5:59 AM HOT TOP LINER [facility] Blood BLOOD SPECIMEN / Unknown 10/01/2023 5:52 AM HOT TOP LINER 10/01/2023 5:59 AM HOT TOP LINER us Paul Chaudhry MD LAB - POINT OF CARE ORDERABL ES Final Result [facility] [id number] [place] [address] from Last 3 Months or Most Recently Relevant to Health Maintenance Insurance [employer] Advance Directives * Full Code (Latest Code Status on File) Date Activated Date Inactivated Comments 09/30/2023 10:48 AM 10/01/2023 12:58 PM Care Teams Network Security Architect Relationship Specialty Start Date End Date Jai Miguel MD [address] [place] [address] PCP - General 01/24/18
--- OUTSIDE RECORDS SUMMARY | 2025-05-22 09:29 | XMS_ITS | Clinical Summary ---
Author Organization [facility] Care Team Providers Care Tester Rocket Engine Name Role Phone Unavailable Primary Care Provider Unavailabl e Social History Tobacco Use Types Packs/Day Years Used Date Smoking Tobacco: Never Assessed Comments Unknown Sex and Gender Information Value Date Recorded Sex Assigned at Not on file Legal Sex Female 8:27 AM CDT Gender Identity Not on file Sexual Orientation Not on file Plan of Treatment Health Maintenance Due Date Last Done Comments Hepatitis C Virus (HCV) Screening 1980 TdaP Immunization 1980 Hepatitis B Immunization (1 of 3 - 19+ 3-dose series) 02/08/1999 Pap Smear 02/08/2001 Human Papillomavirus (HPV) Immunization (1 - 3-dose SCDM series) 02/08/2007 Cervical Cancer Screening (CCS) 02/08/2010 HPV/Cotest 02/08/2010 Cologuard 02/08/2025 Colonoscopy 02/08/2025 Colorectal Cancer Screening 02/08/2025 Immunochemical Fecal Occult Blood 02/08/2025 Influenza Immunization (#1) 2025 SARS-COV-2 Immunization ( season) 2025 Respiratory Syncytial Virus (RSV) Immunization (Adult) (1 - 1-dose 75+ series) 02/08/2055 Meningococcal Immunization (ACWY) Aged Out No longer eligible based on patient's age to complete this topic Pneumococcal Immunization Combined Aged Out No longer eligible based on patient's age to complete this topic Rotavirus Immunization Aged Out No lo nger eligible based on patient's age to complete this topic
== END 2025-05-22 09:26 | disposition home or self-care (01) ==
LOC: ANHIMG 09:27
PROVIDERS: PCP Family Medicine; Visit Provider Family Medicine
DX: M54.16 Radiculopathy, lumbar region (principal); F41.8 Other specified anxiety disorders; D50.8 Other iron deficiency anemias; G25.81 Restless legs syndrome
CPT/HCPCS: 72114

== ENCOUNTER 2025-05-26 07:31 | Outpatient (CLI) | payer BC, SELFPAY ==
--- OUTSIDE RECORDS SUMMARY | 2025-05-26 07:35 | XMS_ITS | Clinical Summary ---
Author Organization [facility] Address [address] [place] [address] Care Team Providers Care Director Of Outside Sales Name Role Phone Jai Miguel MD Primary Care Provider [phone] Source Comments [facility],non-owned Affiliates and Associated Physician Practices is amultiple site organization consisting of ambulatory clinics and hospital sitesin [place], [place], [place] and [place]. This disclosure is being madepursuant to the Care Everywhere program and may not contain all information available regarding this patient. Last updated 18.[facility] [employer] Allergies Active Allergy Reactions Criticality Noted Date [...] on file Legal Sex Female 7:14 AM OLIVE GROWER Gender Identity Not on file Sexual Orientation Not on file Last Filed Vital Signs Vital Sign Reading Time Taken Comments Blood Pressure 116/72 04/02/2024 1:28 PM CDT Pulse 70 04/02/2024 1:28 PM CDT Temperature 36.3 C (97.4 F) 10/07/2023 10:22 AM OLIVE GROWER Respiratory Rate 18 10/01/2023 7:08 AM OLIVE GROWER Oxygen Saturation 100% 04/02/2024 1:28 PM CDT Inhaled Oxygen Concentration - - Weight 78.5 kg (173 lb) 09/29/2024 8:41 AM OLIVE GROWER Height 172.7 cm (5' 8) 04/02/2024 1:28 [...] POINT OF CARE Routine 10/01/2023 5:52 AM OLIVE GROWER from Last 3 Months or Most Recently Relevant to Health Maintenance Results * GLUCOSE - POINT OF CARE (10/01/2023 5:52 AM OLIVE GROWER) Glucose WB/POC 100 70 - 106 mg/dL 10/01/2023 5:59 AM OLIVE GROWER [facility] Specimen Type Cap Fingerstick 2023 5:59 AM OLIVE GROWER [facility] Blood BLOOD SPECIMEN / Unknown 10/01/2023 5:52 AM OLIVE GROWER 10/01/2023 5:59 AM OLIVE GROWER us Paul Chaudhry MD LAB - POINT OF CARE ORDERABL ES Final Result [facility] [id number] [place] [address] from Last 3 Months or Most Recently Relevant to Health Maintenance Insurance [employer] Advance Directives * Full Code (Latest Code Status on File) Date Activated Date Inactivated Comments 09/30/2023 10:48 AM 10/01/2023 12:58 PM Care Teams Director Of Outside Sales Relationship Specialty Start Date End Date Jai Miguel MD [address] [place] [address] PCP - General 01/24/18
--- OUTSIDE RECORDS SUMMARY | 2025-05-26 07:35 | XMS_ITS | Clinical Summary ---
Author Organization [facility] Care Team Providers Care Under Seal Operator Name Role Phone Unavailable Primary Care Provider [...]
[2025-05-26 09:23] LABS: Alanine Aminotransferase 22 U/L (6-35); Albumin Level 4.0 g/dL (3.5-5.1); Alkaline Phosphatase 49 U/L (38-126); Anion Gap 4 mmol/L (4-12); Aspartate Amino Transferase 41 U/L (14-36); Bilirubin,Total 0.5 mg/dL (0.2-1.3); Blood Urea Nitrogen 8 mg/dL (7-17); Calcium 9.0 mg/dL (8.4-10.2); Carbon Dioxide 27 mmol/L (22-30); Chloride 106 mmol/L (98-107); Cholesterol 140 mg/dL (0-200); Estimated Glomerular Filt Rate > 60; Glucose 92 mg/dL (65-110); HDL Direct 70 mg/dL; Potassium 4.4 mmol/L (3.4-5.0); Sodium 137 mmol/L (137-145); Total Protein 6.6 g/dL (6.3-8.2); Triglycerides 66 mg/dL (<150)
== END 2025-05-26 07:32 | disposition home or self-care (01) ==
LOC: ANHLAB 07:33
PROVIDERS: PCP Family Medicine; Visit Provider Family Medicine
DX: Z13.220 Encounter for screening for lipoid disorders (principal); F41.8 Other specified anxiety disorders; D50.8 Other iron deficiency anemias; G25.81 Restless legs syndrome
CPT/HCPCS: 36415; 80053; 80061